=== PATIENT | female | born 1970 | race African-American/Black ===

== ENCOUNTER 2017-05-26 11:41 | Emergency (ER) | payer BC ==
[2017-05-26] MEDS ORDERED: Ketorolac Tromethamine 30 MG/ML VIAL ONE (12:21)
--- NOTE | 2017-05-26 14:07 | CT ---
NONCONTRAST HEAD CT: HISTORY: The patient struck head with car door while opening door yesterday. Intermittent dizziness and postt raumatic headache and pain. COMPARISON: 08/14/2007 TECHNIQUE: A noncontrast head CT is performed from the skull base to the skull vertex. FINDINGS: No parenchymal hemorrhage. No extraaxial hematoma. No midline shift. The basilar cisterns are lou nt. Brain volume is age appropriate. Cortical fischer white matter differentiation is preserved. The ventricles and sulci are patent and symmetric. Adequate aeration of the sinuses and mastoid air cells. Intact calvarium. IMPRESSION: No intracranial or posttraumatic sequelae. POS: [facility]
== END 2017-05-26 14:46 | disposition home or self-care (01) ==
LOC: ERS 11:41
DX: S06.0X9A Concussion with loss of consciousness of unspecified duration, initial encounter (principal); S00.83XA Contusion of other part of head, initial encounter; E11.9 Type 2 diabetes mellitus without complications; I10 Essential (primary) hypertension; B20 Human immunodeficiency virus [HIV] disease; Z79.84 Long term (current) use of oral hypoglycemic drugs; Z79.899 Other long term (current) drug therapy; W22.8XXA Striking against or struck by other objects, initial encounter
CPT/HCPCS: 70450; 96372; J1885

== ENCOUNTER 2017-06-07 06:30 | Emergency (ER) | payer BC ==
[2017-06-07] MEDS ORDERED: Ketorolac Tromethamine 60 MG/2 ML VIAL ONE (06:52)
== END 2017-06-07 06:56 | disposition home or self-care (01) ==
LOC: ERS 06:30
DX: J11.1 Influenza due to unidentified influenza virus with other respiratory manifestations (principal); B20 Human immunodeficiency virus [HIV] disease; E11.9 Type 2 diabetes mellitus without complications; I10 Essential (primary) hypertension; Z79.4 Long term (current) use of insulin; Z79.899 Other long term (current) drug therapy
CPT/HCPCS: 96372; J1885

== ENCOUNTER 2019-02-27 12:57 | Emergency (ER) | payer BC ==
[~2019-02-27 12:57] MED LIST: ISOVUE-370 76%-LOCM 1 ML ONE
[2019-02-27 13:35] LABS: #Lymphocytes 3.3 thou/uL (1.20-3.40); #Monocytes 0.5 thou/uL (0.11-0.59); #Neutrophils 5.2 thou/uL (1.40-6.50); %Basophils 0.5 % (0.0-1.0); %Eosinophils 0.5 % (0.0-10.0); %Lymphocytes 36.4 % (21.0-51.0); %Monocytes 5.2 % (0.0-10.0); %Neutrophils 57.4 % (42.0-75.0); Hemoglobin 13.2 g/dL (12.0-16.0); Mean Corpuscular HGB CONC 32.5 g/dL (32.0-36.0); Mean Corpuscular Hemoglobin 29.6 pg (27.0-31.0); Mean Corpuscular Volume 91.1 fL (78.0-98.0); Mean Platelet Volume 10.8 fL (7.4-10.4); Platelet Count 222 thou/uL (130-400); RBC Distribution Width 11.8 % (11.5-14.5); Red Blood Cell (RBC) Count 4.47 mill/uL (4.20-5.40); White Blood Cell (WBC) Count 9.1 thou/uL (4.8-10.8)
[2019-02-27 13:45] LABS: BHCG - Serum Negative (NEGATIVE); Pregs Control Background? CLEAR/WHITE (CLR/WHITE); Pregs Control Bar Appear? YES (CONTROL BAR)
[2019-02-27 14:02] LABS: ALT (SGPT) 21 U/L (8-55); AST (SGOT) 25 U/L (5-34); Albumin 4.1 g/dL (3.5-5.0); Alkaline Phosphatase 88 U/L (40-150); Anion Gap 14 mmol/L (10-20); BUN (Urea Nitrogen) 14 mg/dL (7.0-18.7); Bilirubin, Total 0.3 mg/dL (0.2-1.2); Calc. Creatinine Clearance 0 mL/min (70-130); Calcium 9.4 mg/dL (7.8-10.44); Carbon Dioxide 23 mmol/L (22-29); Chloride 109 mmol/L (98-107); Estimated GFR-MDRD 70; Globulin 3.9 g/dL (2.4-3.5); Glucose 88 mg/dL (70-105); Potassium 3.8 mmol/L (3.5-5.1); Sodium 142 mmol/L (136-145)
[2019-02-27] MEDS ORDERED: Ketorolac Tromethamine 30 MG/ML VIAL ONE (14:08)
--- NOTE | 2019-02-27 15:28 | CT ---
POSTCONTRAST SOFT TISSUE NECK CT: 02/27/19 HISTORY: Lower dental pain and jaw swelling. Sudden onset. Worsening pain. COMPARISON: None. TECHNIQUE: Postcontrast soft tissue neck CT is performed in the axial plane. Reformatted images are submitted fo r interpretation. FINDINGS: The visualized brain parenchyma is unremarkable. Adequate aeration of the sinuses and mastoid air mandie ls. No obvious masses in the oral cavity. Midline fatty raphae of the tongue is preserved. There is evidence of a dental caries involving the posterior most left mandibular molar tooth. There is a periapical lucency involving the 13th tooth. There is irregularity and scalloping/remodeling of the body of the right mandible. The overlying gingival and soft tissues demonstrate edema and indurat ion. There is a small focus of air attenuation in the soft tissues with peripheral enhancement. A sma ll periapical abscess measuring 1 cm is suspected. Induration of the overlying soft tissues does exte nd along the mandibular protuberance and involve the left facial soft tissues at the level of the man dible. Additional soft tissue abscesses are not appreciated. There is mild edematous change in the ri ght sublingual space. Symmetric attenuation of the parotid and submandibular glands. Symmetric attenu ation of the sternocleidomastoid muscles. Grossly, the great vessels of the neck are patent. Mild fullness of the palatine tonsils. Epiglottis has a normal caliber. Pre-epiglottic fat is preserved. The hypopharynx, supraglottic, glot tic and subglottic larynx is unremarkable. Upper mediastinum and lung apices are unremarkable. No evidence of lymphadenopathy by size criteria. Hypodensity in the left thyroid lobe measuring 1.3 cm is incompletely evaluated. Cervical spine vertebral body height is maintained. No fracture. 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 There appears to be a periapical absce ss along the right aspect of the mandible. This abscess appears to be approximately 1 cm. There is ev idence of associated inflammatory change at the level of the left and right mandible. POS: [facility]
[2019-02-27] MEDS ORDERED: Clindamycin/D5W 900 mg/50 ml Premix Bag ONE (16:12)
== END 2019-02-27 16:07 | disposition home or self-care (01) ==
LOC: ERS 12:57
DX: K04.7 Periapical abscess without sinus (principal); B20 Human immunodeficiency virus [HIV] disease; E11.9 Type 2 diabetes mellitus without complications; I10 Essential (primary) hypertension; Z79.84 Long term (current) use of oral hypoglycemic drugs; Z79.899 Other long term (current) drug therapy
CPT/HCPCS: 36415; 70491; 80053; 84703; 85025; 96374; J1885; J3490; Q9966

== ENCOUNTER 2019-05-10 17:34 | Emergency (ER) | payer BC ==
[2019-05-10 18:08] LABS: Bacteria/HPF 4+ HPF (None Seen); Bilirubin Negative (Negative); Blood, Urine 1+ (Negative); Clarity Turbid (Clear); Glucose, Urine (Dipstick) Normal (Negative); Leukocyte 500 Leu/uL (Negative); Nitrite 2+ (Negative); Protein, Urine (Dipstick) 200 mg/dL (Neg-Trace); Squamous Epithelial 0-3 HPF (0-3); Urobilinogen Normal mg/dL (Less than 2); WBC/HPF Greater than 50 HPF (0-3)
[2019-05-10] MEDS ORDERED: Ciprofloxacin 500 MG TAB ONE (19:17)
[2019-05-10] MEDS ORDERED: Lidocaine 1% PF 5 ML VIAL ONE (19:18)
[2019-05-10] MEDS ORDERED: cefTRIAXone\\ROCEPHIN 1 GM VIAL ONE (19:18)
== END 2019-05-10 19:45 | disposition home or self-care (01) ==
LOC: ERS 17:34
DX: N10 Acute pyelonephritis (principal); B20 Human immunodeficiency virus [HIV] disease; E11.9 Type 2 diabetes mellitus without complications; I10 Essential (primary) hypertension; Z79.84 Long term (current) use of oral hypoglycemic drugs; Z79.899 Other long term (current) drug therapy
CPT/HCPCS: 81003; 81015; 87077; 87086; 87186; 96372; 99284; J0696; J2001

== ENCOUNTER 2020-05-24 04:09 | Emergency (ER) | payer BC ==
[2020-05-24] MEDS ORDERED: Ketorolac Tromethamine 30 MG/ML VIAL ONE (04:41)
== END 2020-05-24 05:09 | disposition home or self-care (01) ==
LOC: ERS 04:09
DX: M54.5 Low back pain (principal); Z21 Asymptomatic human immunodeficiency virus [HIV] infection status; E11.9 Type 2 diabetes mellitus without complications; I10 Essential (primary) hypertension; Z79.84 Long term (current) use of oral hypoglycemic drugs; Z79.899 Other long term (current) drug therapy; X50.0XXA Overexertion from strenuous movement or load, initial encounter; Y99.0 Civilian activity done for income or pay
CPT/HCPCS: 96372; 99283; J1885

== ENCOUNTER 2020-10-17 15:07 | Emergency (ER) | payer OTHER, BC ==
[2020-10-17] MEDS ORDERED: Ketorolac Tromethamine 30 MG/ML VIAL ONE (15:55)
== END 2020-10-17 16:10 | disposition home or self-care (01) ==
LOC: ERS 15:07
DX: S80.01XA Contusion of right knee, initial encounter (principal); I10 Essential (primary) hypertension; E11.9 Type 2 diabetes mellitus without complications; Z79.84 Long term (current) use of oral hypoglycemic drugs; V49.40XA Driver injured in collision with unspecified motor vehicles in traffic accident, initial encounter
CPT/HCPCS: 96372; J1885

== ENCOUNTER 2020-11-20 18:27 | Emergency (ER) | payer BC ==
[2020-11-20] MEDS ORDERED: Ketorolac Tromethamine 30 MG/ML VIAL ONE (19:01)
== END 2020-11-20 19:20 | disposition home or self-care (01) ==
LOC: ERS 18:27
DX: K03.81 Cracked tooth (principal); K02.9 Dental caries, unspecified; B20 Human immunodeficiency virus [HIV] disease; E11.9 Type 2 diabetes mellitus without complications; I10 Essential (primary) hypertension
CPT/HCPCS: 96372; 99283; J1885

== ENCOUNTER 2021-05-19 23:28 | Emergency (ER) | payer BC, SELFPAY ==
[2021-05-20 01:16] LABS: Bacteria/HPF 4+ HPF (None Seen); Bilirubin Negative (Negative); Blood, Urine Negative (Negative); Clarity Turbid (Clear); Glucose, Urine (Dipstick) Greater than 1000 mg/dL (Negative); Ketone, Urine Trace mg/dL (Negative); Leukocyte 500 Leu/uL (Negative); Nitrite Negative (Negative); Protein, Urine (Dipstick) Negative (Neg-Trace); Specific Gravity, Urine 1.032 (1.002-1.036); Urobilinogen Normal mg/dL (Less than 2); WBC/HPF Greater than 50 HPF (0-3); pH, Urine 5.5 (5.0-9.0)
[2021-05-21 20:55] LABS: Chlamydia by PCR Not Detected (NotDetected); GC by PCR Not Detected (NotDetected)
== END 2021-05-20 04:20 | disposition home or self-care (01) ==
LOC: ERS 23:28
DX: N39.0 Urinary tract infection, site not specified (principal); N89.8 Other specified noninflammatory disorders of vagina; I10 Essential (primary) hypertension; E11.9 Type 2 diabetes mellitus without complications; B20 Human immunodeficiency virus [HIV] disease; Z79.84 Long term (current) use of oral hypoglycemic drugs; Z79.899 Other long term (current) drug therapy
CPT/HCPCS: 81003; 81015; 87480; 87491; 87510; 87591; 87660; 99283